=== PATIENT | female | born 1980 | race Caucasian/White ===

== ENCOUNTER 2017-07-08 05:44 | Day surgery (SDC) | payer BC ==
[~2017-07-08] VITALS: Ht 175.3 cm; Wt 96.0 kg
[2017-07-08] VITALS (7 sets, daily range): BP systolic 112–131; BP diastolic 52–78; PULSE 53–66; TEMP 98.2
[2017-07-08] MEDS ORDERED: TOPROL XL100 MG PO (06:40)
[2017-07-08] MEDS ORDERED: ASPIRIN 81M81 MG/TA2 PO (06:41)
[2017-07-08] MEDS ORDERED: MULTI VITAMINS1 TAB PO (06:42)
[2017-07-08] MEDS ORDERED: FISH OIL 500 M1 EAC1 PO (06:42)
[2017-07-08] MEDS ORDERED: TYLENOL 325MG325 MG PO (06:43)
[2017-07-08] MEDS ORDERED: MOTRIN 200200 MG/TAB PO (06:44)
[2017-07-08] MEDS ORDERED: COLACE 100100 MG/CAP PO (08:35)
[2017-07-08] MEDS ORDERED: MOTRIN 600600 MG/TAB PO (08:35)
[2017-07-08] MEDS ORDERED: PERCOCET 325 MG1 TA2 PO (08:36)
== END 2017-07-08 10:30 | disposition home or self-care (01) ==
LOC: SDCO 05:44
DX: I42.2 Other hypertrophic cardiomyopathy (principal); K42.9 Umbilical hernia without obstruction or gangrene; N80.6 Endometriosis in cutaneous scar; R22.2 Localized swelling, mass and lump, trunk; I10 Essential (primary) hypertension; K21.9 Gastro-esophageal reflux disease without esophagitis; Z79.82 Long term (current) use of aspirin; E03.9 Hypothyroidism, unspecified; E55.9 Vitamin D deficiency, unspecified; Z82.49 Family history of ischemic heart disease and other diseases of the circulatory system
CPT/HCPCS: J0690; J2250; J2704; J3010; J7120